=== PATIENT | male | born 1960 | race Asian ===

== ENCOUNTER 2016-12-03 12:14 | Outpatient (CLI) | payer OTHER | END 2016-12-03 13:20 | disposition home or self-care (01) | LOC: RAD 12:14 | DX: S20.212A Contusion of left front wall of thorax, initial encounter (principal); S39.012A Strain of muscle, fascia and tendon of lower back, initial encounter; S16.1XXA Strain of muscle, fascia and tendon at neck level, initial encounter ==

== ENCOUNTER 2018-07-02 13:41 | Outpatient (CLI) | payer OTHER | END 2018-07-02 19:55 | disposition home or self-care (01) | LOC: MRI 13:41 | DX: M54.17 Radiculopathy, lumbosacral region (principal) ==

== ENCOUNTER 2018-07-13 09:11 | Outpatient (CLI) | payer OTHER | END 2018-07-13 21:05 | disposition home or self-care (01) | LOC: US 09:11 | DX: N28.1 Cyst of kidney, acquired (principal) ==

== ENCOUNTER 2018-07-19 10:33 | Emergency (ER) | payer OTHER ==
[~2018-07-19] VITALS: Ht 167.6 cm; Wt 108.9 kg
[2018-07-19 13:00] VITALS: BP 141/83; TEMP 98.4
== END 2018-07-19 13:05 | disposition home or self-care (01) ==
LOC: ED 10:33
DX: M54.16 Radiculopathy, lumbar region (principal)
CPT/HCPCS: 80307; 96372; 99282; J1885

== ENCOUNTER 2020-12-19 18:13 | Emergency (ER) | payer OTHER ==
[~2020-12-19] VITALS: Ht 167.6 cm; Wt 108.9 kg
[2020-12-19 19:40] VITALS: BP 132/81; TEMP 97.6
== END 2020-12-19 19:40 | disposition home or self-care (01) ==
LOC: ED 18:13
DX: J06.9 Acute upper respiratory infection, unspecified (principal); U07.1 COVID-19
CPT/HCPCS: 87635; 99282; U0003

== ENCOUNTER 2020-12-24 16:35 | Observation (INO) | payer OTHER ==
[~2020-12-24] VITALS: Ht 193 cm; Wt 99.9 kg
[2020-12-24 16:55] VITALS: BP 127/87; TEMP 99.5
[2020-12-24 18:00] VITALS: BP 131/91
[2020-12-24 18:35] LABS: PLATELET COUNT 265 K/uL (142-355)
[2020-12-24 18:52] LABS: SODIUM 127 mmol/L (136-145)
[2020-12-24 19:00] VITALS: BP 134/88
[2020-12-24 20:00] VITALS: BP 131/89
[2020-12-24 21:00] VITALS: BP 136/91
--- NOTE | 2020-12-24 21:40 | NUR ---
PATIENT ADMITTED TO ROOM #1110 AMBULATORY FROM THE ER. PATIENT ALERT AND ORIENTED X 3, SKIN WARM AND DRY AND NO ACUTE DISTRESS NOTED AT THIS TIME. PATIENT ORIENTED TO ROOM AND CALL SYSTEM AND VERBALIZES UNDERSTANDING. PATIENT HAS A 18G IV TO HIS RIGHT AC WITH NORMAL SALINE INFUSING. NO REDNESS, EDEMA OR DISCOMFORT NOTED AT THIS TIME. CALL LIGHT WITHIN REACH. WILL CONTINUE TO MONITOR.
[2020-12-25] VITALS (7 sets, daily range): BP systolic 131–145; BP diastolic 88–99; TEMP 97.5–98.7; Ht 193 cm; Wt 99.9 kg
--- NOTE | 2020-12-25 06:15 | NUR ---
FSBS IS 391, 10 UNITS OF REGULAR INSULIN GIVEN PER SLIDING SCALE.
--- NOTE | 2020-12-25 16:15 | NUR ---
PT TO RADIOLOGY VIA WHEELCHAIR AND RAD STAFF
--- NOTE | 2020-12-25 16:20 | NUR ---
PT RETURNS FROM RAD VIA CHEELCHAIR AND RAD STAFF. PT TOLERATED PROCEEDURE WELL. O2 SATURAATION IS 92-93% ON ROOM AIR.
--- NOTE | 2020-12-25 17:00 | NUR ---
REPORTED BS [phone] MENDOZA. SHE INSTRUCTED TO GIVE 15 UNITS OF REGULAR INSULIN.
[2020-12-26 03:39] VITALS: BP 136/92; TEMP 98.6
[2020-12-26 04:45] LABS: PLATELET COUNT 333 K/uL (142-355)
[2020-12-26 08:00] VITALS: BP 146/90; TEMP 98.4
[2020-12-26 12:00] VITALS: BP 130/77; TEMP 98.6
--- NOTE | 2020-12-26 15:11 | NUR ---
12/26/20 1510 DISCHARGE INSTRUCTIONS GIVEN AND SIGNED WITH RX GIVEN.PT TOOK OUT VIA WHEELCHAIR TO PRIVATE VECHICLE WITH FAMILY.SALINE LOCK REMOVED APPLIED 2X2 SECURED WITH TAPE.TELE RETURNED TO DESK.CC
--- NOTE | 2020-12-31 13:13 | NUR ---
Spoke with patients girlfriend Aileen Sultana after multiple attempts to reach patient. She said that he was out walking and that he was doing good and would be following up with Dr. Barajas as scheduled.
== END 2020-12-26 15:00 | disposition home or self-care (01) ==
LOC: ED 16:35 → MED/SURG 20:45
PROVIDERS: Emergency Medicine Emergency Medical Services; ADMIT Family Medicine; ATTEND Family Medicine
DX: J12.82 Pneumonia due to coronavirus disease 2019 (principal); I10 Essential (primary) hypertension; E78.49 Other hyperlipidemia; E11.9 Type 2 diabetes mellitus without complications; U07.1 COVID-19; R06.09 Other forms of dyspnea; Z91.19 Patient's noncompliance with other medical treatment and regimen
CPT/HCPCS: 36415; 36600; 80053; 82728; 82805; 83605; 83735; 84100; 84484; 85027; 85379; 86140; 94760; 96360; 96361; 96365; 96375; 99220; 99284; G0378; J0456; J0696; J1650; J1815; J1885; J2920; J2930

== ENCOUNTER 2022-07-15 16:47 | Emergency (ER) | payer OTHER ==
[~2022-07-15] VITALS: Ht 193 cm; Wt 108.9 kg
[2022-07-15 16:50] VITALS: BP 152/100; TEMP 97.8
[2022-07-15 17:30] LABS: PLATELET COUNT 267 K/uL (142-355)
== END 2022-07-15 18:56 | disposition home or self-care (01) ==
LOC: ED 16:47
PROVIDERS: Emergency Medicine
DX: S76.012A Strain of muscle, fascia and tendon of left hip, initial encounter (principal); Z96.642 Presence of left artificial hip joint; X50.0XXA Overexertion from strenuous movement or load, initial encounter; Y92.89 Other specified places as the place of occurrence of the external cause
CPT/HCPCS: 80048; 85027; 96372; 99283; J1885; J2175; J2405